=== PATIENT | female | born 1985 | race Caucasian/White ===

== ENCOUNTER 2016-11-05 11:37 | Day surgery (SDC) | payer MEDICAID ==
[2016-10-29 09:38] LABS: ABSOLUTE BASOPHILS # (AUTO) 0.1 10^3/uL (0.0-0.2); ABSOLUTE LYMPHOCYTES (AUTO) 2.8 10^3/uL (0.5-4.7); ABSOLUTE MONOCYTES (AUTO) 0.8 10^3/uL (0.1-1.4); ABSOLUTE NEUT (AUTO) 5.4 10^3/uL (1.7-8.2); BASOPHILS % (AUTO) 0.5 % (0-2); EOSINOPHILS % (AUTO) 9.5 % (0-6); HEMATOCRIT 40.5 % (36.0-47.0); HEMOGLOBIN 14.1 g/dL (12.0-15.5); HGB HCT DIFFERENCE 1.8; LYMPHOCYTES % (AUTO) 28.1 % (13-45); MEAN CORPUSCULAR HEMOGLOBIN 31.1 pg (27.0-33.4); MEAN CORPUSCULAR HGB CONC 34.9 g/dL (32.0-36.0); MEAN CORPUSCULAR VOLUME 89 fl (80-97); MONOCYTES % (AUTO) 7.8 % (3-13); RED BLOOD COUNT 4.54 10^6/uL (3.72-5.28); RED CELL DISTRIBUTION WIDTH 13.2 % (11.5-14.0); SEGMENTED NEUTROPHILS % (AUTO) 54.1 % (42-78); WHITE BLOOD COUNT 10.1 10^3/uL (4.0-10.5)
[2016-10-29 09:41] LABS: APPEARANCE,URINE CLEAR; BILIRUBIN,URINE NEGATIVE (NEGATIVE); GLUCOSE, URINE NEGATIVE (NEGATIVE); KETONES,URINE NEGATIVE (NEGATIVE); LEUKOCYTE ESTERASE,URINE NEGATIVE (NEGATIVE); NITRITE,URINE NEGATIVE (NEGATIVE); PROTEIN,URINE NEGATIVE (NEGATIVE); URINE SPECIFIC GRAVITY 1.004; UROBILINOGEN,URINE NEGATIVE mg/dL (<2.0)
[2016-10-29 09:56] LABS: ANION GAP 14 (5-19); BLOOD UREA NITROGEN 11 mg/dL (7-20); CALCIUM 9.8 mg/dL (8.4-10.2); CARBON DIOXIDE 22 mmol/L (22-30); CHLORIDE 106 mmol/L (98-107); CREATININE RESULT 0.58 mg/dL (0.52-1.25); GLUCOSE 76 mg/dL (75-110); POTASSIUM 4.5 mmol/L (3.6-5.0); SODIUM 141.9 mmol/L (137-145)
--- NOTE | 2016-10-29 13:15 | EKG REPORT ---
SEVERITY:- BORDERLINE ECG - SINUS RHYTHM PROBABLE LEFT ATRIAL ABNORMALITY : Confirmed by: Mikaela Ochoa MD 29-Oct-2016 13:13:58
[~2016-11-05 11:37] MED LIST: CEFAZOLIN 2 GM/D5W RTU 2 GM/50 ML RTUPB IV PRN; DEXAMETHASONE SOD PHOSPHATE INJ 4 MG/1 ML VIAL ONE; FENTANYL CITRATE INJ/PF 100 MCG/2 ML AMPUL ONE; LACTATED RINGERS 1000 ML IV PRN; LIDOCAINE 0.5% INJ-PF (5 MG/ML) 50 ML SDV SUBCUT PRN; LIDOCAINE 2% INJ-PF (20 MG/ML) 10 ML AMPUL ONE; MIDAZOLAM 2 MG/2 ML INJ ONE; ONDANSETRON HCL INJ/PF 4 MG/2 ML SDV ONE; PROPOFOL INJ 200 MG/20 ML VIAL IV ONE; SUCCINYLCHOLINE CHLORIDE INJ 200 MG/10 ML VIAL ONE
[2016-11-05] MEDS ORDERED: LIDOCAINE 1% INJ-PF (10 MG/ML) 30 ML SDV ONE (12:07)
[2016-11-05] MEDS ORDERED: FENTANYL CITRATE INJ/PF 100 MCG/2 ML AMPUL ONE (12:22)
[2016-11-05] MEDS: BUPIVACAINE HCL 0.5 % INJ/PF 30 ML SDV ONE ×2 (12:24→14:32)
[2016-11-05] MEDS ORDERED: PROPOFOL INJ 200 MG/20 ML VIAL IV ONE (13:22)
[2016-11-05] MEDS ORDERED: HYDROMORPHONE HCL INJ/PF 2 MG/ML AMPULE ONE (13:26)
[2016-11-05] MEDS ORDERED: FENTANYL CITRATE INJ/PF 100 MCG/2 ML AMPUL IV PRN ×3 (13:41)
[2016-11-05] MEDS ORDERED: PROMETHAZINE HCL INJ 25 MG/1 ML VIAL IV PRN (13:41)
[2016-11-05] MEDS ORDERED: MORPHINE SULFATE 10 MG/ML INJ IV PRN (13:41)
[2016-11-05] MEDS ORDERED: MEPERIDINE HCL/PF INJ 25 MG/1 ML DISP.SYRIN IV PRN (13:41)
[2016-11-05] MEDS ORDERED: DIPHENHYDRAMINE HCL 50 MG/ML VIAL IV PRN (13:41)
--- NOTE | 2016-11-05 14:18 | Brief Operative Note ---
BRIEF OPERATIVE REPORT DATE OF SURGERY: 11/05/16 TIME OF SURGERY: 14:18 PREOPERATIVE DIAGNOSIS: Right recurrent carpal tunnel syndrome POSTOPERATIVE DIAGNOSIS: Same SURGEON: LINDY WRIGHT FINDINGS: compression median nerve at transverse carpal ligament COMPLICATIONS: None ESTIMATED BLOOD LOSS: <25cc TISSUE REMOVED OR ALTERED: None TECHNICAL PROCEDURE: Right Carpal Tunnel Release w/ Hypothenar Fat Pad Transfer , Placement of Axogen Nerve Wrap
[2016-11-05] MEDS ORDERED: ONDANSETRON HCL INJ/PF 4 MG/2 ML SDV IV PRN (14:19)
[2016-11-05] MEDS ORDERED: HYDROCODONE/ACETAMINOPHEN 5-325 MG TABLET PO PRN (14:19)
[2016-11-05] MEDS ORDERED: HYDROMORPHONE HCL INJ/PF 2 MG/ML AMPULE IV PRN (14:19)
--- NOTE | 2016-11-05 14:19 | PDOC DISCHARGE SUMMARY ---
Discharge Summary (SDC) - Discharge Final Diagnosis: Right recurrent carpal tunnel syndrome Date of Surgery: 11/05/16 Discharge Date: 11/05/16 Condition: Good Treatment or Instructions: Schedule Follow Up w/ Dr. Doe Demarco @ [facility] to be seen in 10-14 days or as scheduled [place]: [place]: [place]: Keep splint clean/dry/intact. Ice and elevate May begin finger range of motion attempting to make full fist. Stool softener of choice when on pain medication. Prescriptions: Hydrocodone/Acetaminophen [[place]ell 7.5-325 mg Tablet] 1 tab PO Q6 PRN #40 tablet PRN Reason: Discharge Diet: As Tolerated Respiratory Treatments at Home: Deep Breathing/Coughing Discharge Activity: No Lifting Over 10 Pounds, No Lifting/Push/Pulling Report the Following to Your Physician Immediately: Fever over 101 Degrees, Unusual Bleeding, Redness, Swelling, Warmth, Increased Soreness, Numbness, Tingling Sensation
--- NOTE | 2016-11-05 15:47 | Operative Report ---
Operative Report DATE OF SURGERY: 11/05/16 PREOPERATIVE DIAGNOSIS: Right recurrent carpal tunnel syndrome POSTOPERATIVE DIAGNOSIS: Same OPERATION: Right Carpal Tunnel Release w/ Hypothenar Fat Pad Transfer, Placement of Axogen Nerve Wrap SURGEON: LINDY WRIGHT TISSUE REMOVED OR ALTERED: None COMPLICATIONS: None ESTIMATED BLOOD LOSS: <25cc INTRAOPERATIVE FINDINGS: compression median nerve at transverse carpal ligament PROCEDURE: Indication for above procedure: 31-year-old female with history of right carpal tunnel syndrome. Approximately one year ago she went open carpal tunnel release which she states she did well with initially but then her symptoms returned. She notes numbness and tingling in the thumb index and middle finger. We attempted concern measures including injection, activity modification and bracing without resolution of the symptoms. I then discussed operative versus nonoperative intervention. Risks and benefits were explained to the patient patient verbalized understanding and consented for operative treatment. Procedure In Detail: Patient was seen and evaluated in the preoperative holding area. The RIGHT upper extremity was initialized and marked. Patient received 2g of Ancef IV for bacterial prophylaxis. Patient was taken back to the operative room where transferred to the operative table and placed under general anesthesia. Once they were adequately anesthetized a nonsterile tourniquet was placed on the upper extremity. A surgical team debriefing was performed ensuring all instrumentation was available, the surgical procedure was discussed with possible concerns reviewed. The upper extremity was prepped with chlorhexidine and alcohol and draped in a sterile fashion. A timeout was done identifying correct patient, procedure and extremity everyone in attendance agree with this and verbalized no concerns. The extremity was exsanguinated the tourniquet was inflated to 250 mmHg. Patient's previous skin incision was utilized in the palm and then extended past the wrist flexion crease and a Alaina-type curvilinear fashion. Blunt dissection was performed identifying the median nerve proximally in normal- appearing tissue. There was evidence of compression at the antebrachial fascia which was then released. I then continued to follow the nerve in a distal direction. The palmar fascia was released and there was evidence of compression at the wrist flexion crease secondary to scar tissue at the level of the transverse carpal ligament. A median nerve neurolysis was then performed to break up any synovial adhesions that may be causing compression. The motor branch was identified and remained patent. There was color changes at the level of the wrist crease indicative of compression. Blunt dissection was performed to the level of the superficial palmar arch and adipose. Any remaining scar tissue remnant of the transverse carpal ligament was released at this level until no compression was remaining. I then proceeded with isolation of my hypothenar fat pad I carefully elevated the hypothenar fat leaving a small remnant of adipose to the skin to avoid devascularization of the skin. This was freed from the ulnar leaflet of the transverse carpal ligament. The ulnar leaflet of the transverse carpal ligament was then excised. The ulnar artery and nerve were identified proximal to the wrist crease and followed distally until the branch points. These were protected during isolation of the hyperthenar fat. I then continued to follow the I hypothenar fat any ulnar direction until the palmaris brevis muscle was identified. The palmaris brevis was then released from the hyperthenar fat allowing the excellent excursion. The hypothenar fat was then further dissected along the transverse carpal ligament releasing it from any remaining adhesions. Once this was complete I had good excursion of my vascularized adipose fascial flap. The wound was then copiously irrigated with normal saline. On the back table a Axogen nerve protector 10 mm x 40 mm was placed in saline. Once it was the appropriate consistency the nerve was wrapped securing it volarly with interrupted 60 horizontal mattress sutures. Any excess material was then excised. Finally the hypothenar fat pad was secured to the radial leaflet of the transverse carpal ligament with a 3-0 Vicryl horizontal mattress sutures providing good coverage of the median nerve in a volar direction. The wound was then copiously irrigated with normal saline. And the tourniquet was deflated. Any peripheral vascular suture was carefully coagulated with bipolar cautery until the wound was dry. Patient had normal capillary refill and skin turgor. Skin was closed with alternating horizontal mattress and simple 3-0 nylon sutures. 20 mL of 0.5% Marcaine without epinephrine was injected for postoperative pain control. Wound was dressed with Xeroform 4 x 4's and a well- padded volar resting splint. Sponge counts, instrument counts, needle counts counts were correct. Patient was then awoken from anesthesia. Transferred from the operating room table to the operating room stretcher. There was no intraoperative complications patient tolerated procedure well stable to PACU. Postoperative plan: Patient will follow-up in the office in 2 weeks at which point we will proceed with suture removal.
[2016-11-05 16:43] VITALS: BP 112/75
== END 2016-11-05 16:22 | disposition home or self-care (01) ==
LOC: OROUT 11:37
PROVIDERS: ATTEND Orthopaedic Surgery
PROC: 01N50ZZ Release Median Nerve, Open Approach (ICD-10-PCS; 2016-11-05)
PROC: 01U507Z Supplement Median Nerve with Autologous Tissue Substitute, Open Approach (ICD-10-PCS; 2016-11-05)
PROC: 0JXJ0ZB Transfer Right Hand Subcutaneous Tissue and Fascia with Skin and Subcutaneous Tissue, Open Approach (ICD-10-PCS; principal; 2016-11-05 12:45)
DX: G56.01 Carpal tunnel syndrome, right upper limb (principal); F17.210 Nicotine dependence, cigarettes, uncomplicated
CPT/HCPCS: 14040; 93005; 36415; 85025; 81025; 80048; 81001; 71020; 93010; 64721; 64999; J2250; J1100; J3010; J3490 ×2; J1170; J0330; J2405; J2704; J0690

== ENCOUNTER → 2017-03-20 | Outpatient (CLI) | payer MEDICAID ==
--- NOTE | 2017-03-20 09:55 | RADIOLOGY REPORT (SQ) ---
EXAM DESCRIPTION: CHEST PA/LATERAL COMPLETED DATE/TIME: 03/20/2017 7:49 am REASON FOR STUDY: OTHER ABNORMALITIES OF BREATHING COMPARISON: 10/29/2016 chest films EXAM PARAMETERS: NUMBER OF VIEWS: two views TECHNIQUE: Digital Frontal and Lateral radiographic views of the chest acquired. RADIATION DOSE: NA LIMITATIONS: none FINDINGS: LUNGS AND PLEURA: There are trace bilateral pleural effusions in the lateral costophrenic sulci and along the major fissures on lateral view. Few Monserrat lines are present at both bases. There is patchy airspace disease at the right and left lung bases, atelectasis versus pneumonia. No pneumothorax. MEDIASTINUM AND HILAR STRUCTURES: No masses or contour abnormalities. HEART AND VASCULAR STRUCTURES: No cardiomegaly BONES: No acute findings. HARDWARE: Clips right upper quadrant post cholecystectomy OTHER: Report called to Marija Swartz, 0930 hours 03/20/2017 IMPRESSION: Trace bilateral pleural effusions with Monserrat lines. Question mild fluid overload or co ngestive failure. There is patchy bibasilar airspace disease atelectasis versus pneumonia. TECHNICAL DOCUMENTATION: JOB ID: [id number] [employer]- All Rights Reserved
== END ==
LOC: OD 07:35
PROVIDERS: ATTEND Nurse Practitioner Family
DX: R06.89 Other abnormalities of breathing (principal)
CPT/HCPCS: 71020

== ENCOUNTER → 2017-04-05 | Outpatient (CLI) | payer OTHER ==
--- NOTE | 2017-04-05 08:36 | RADIOLOGY REPORT (SQ) ---
EXAM DESCRIPTION: CHEST PA/LATERAL COMPLETED DATE/TIME: 04/05/2017 8:27 am REASON FOR STUDY: PNEUMONIA OF BOTH LUNGS DUE TO INFECTIOUS ORGANISM COMPARISON: 03/20/2017. TECHNIQUE: Frontal and lateral radiographic views of the chest acquired. NUMBER OF VIEWS: Two view. LIMITATIONS: None. FINDINGS: LUNGS AND PLEURA: Relatively low lung volumes. Clear lungs today, pneumonia has resolved. No pneumothorax. No new infiltrates. MEDIASTINUM AND HILAR STRUCTURES: No masses or contour abnormalities. HEART AND VASCULAR STRUCTURES: Heart normal size. No evidence for failure. BONES: No acute findings. HARDWARE: None in the chest. OTHER: No other significant finding. IMPRESSION: Resolved pneumonia. TECHNICAL DOCUMENTATION: JOB ID: [id number] [employer]- All Rights Reserved
== END ==
LOC: OD 08:08
PROVIDERS: ATTEND Nurse Practitioner Family
DX: J18.9 Pneumonia, unspecified organism (principal)
CPT/HCPCS: 71020